=== PATIENT | male | born 1990 ===

== ENCOUNTER 2019-08-02 11:52 | Emergency (ER) | payer SELFPAY ==
[2019-08-02 12:38] LABS: BARBITURATE SCREEN,URINE NEGATIVE (NEGATIVE); BENZODIAZEPINES SCREEN,URINE NEGATIVE (NEGATIVE); EDDP,URINE SCREEN NEGATIVE (NEGATIVE); TCA SCREEN,URINE NEGATIVE (NEGATIVE); THC SCREEN,URINE 50 NG/ML NEGATIVE (NEGATIVE)
--- NOTE | 2019-08-02 12:39 | EDM.PDOC ---
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 Cousin is [employer] employee. Initially only information received was from EMS crew who had minimal info and only could relay to us that patient was combative en route and sats in lower 80s. Once patient arrived to hospital he was cooperative and had no complaints, saying to staff that he felt fine. Call placed to patient's cousin and more information obtained. She stated that patient usually drinks "a lot" and "everyday". He can drink " up to a bottle a day" of hard liquor. Per her report he apparently stopped cold turkey yesterday, with his last drink around 11am. Today just before noon she witnessed him fall to the floor and had general seizure activity for approximately 2 minutes. It is then she called 911. No seizure activity reported by EMS. Cousin says patient has no history of seizures in past that she knows of. He does spend part of his time living with others in [place]. She is not aware of any other drug use. Patient denies drug use other than ETOH. Initially he told nurse that he only drinks once a week. When confronted with what his cousin reported, he laughed and agreed that his use is much heavier/daily. When asked why he stopped using alcohol suddenly yesterday morning, he said because "he was tired" (of it). He does report feeling shaky if he is not using ETOH/has some degree of DTs. Both patient and his cousin deny that he has any other health problems that they are aware of. ROS unremarkable otherwise overall except for intermittent mild cough. Patient smokes 1ppd per self report. - Related Data Allergies Allergy/AdvReac Type Severity Reaction Status Date / Time No Known Allergies Allergy Verified 08/02/19 12:02 Home Meds: Home Meds . [No Known Home Meds] 08/02/19 [History] Past Medical History Psychiatric History: Reports: Addiction (ETOH abuse/dependency) Social & Family History - Tobacco Use Smoking Status *Q: Current Every Day Smoker Years of Tobacco use: 2 Packs/Tins Daily: 1 - Caffeine Use Caffeine Use: Reports: Soda - Alcohol Use Days Per Week of Alcohol Use: 7 Number of Drinks Per Day: 5 Total Drinks Per Week: 35 Total Drinks Per Week Comment: Uncertain how accurate patient's self report is as to amount of use, his cousin states that patient can drink up to a bottle a day. - Recreational Drug Use Recreational Drug Use: No ED ROS GENERAL - Review of Systems Review Of Systems: See Below Constitutional: Reports: No Symptoms HEENT: Reports: No Symptoms. Denies: Vertigo, Vision Change Respiratory: Reports: Cough (mild/intermittent/long standing. Denies acute changes) Cardiovascular: Reports: No Symptoms GI/Abdominal: Reports: No Symptoms : Reports: No Symptoms Musculoskeletal: Reports: No Symptoms Skin: Reports: No Symptoms Neurological: Reports: Seizure, Other (post-ictal confusion reported by EMS). Denies: Dizziness, Headache, Numbness, Trouble Speaking, Difficulty Walking, Change in Speech, Gait Disturbance Psychiatric: Reports: No Symptoms Hematologic/Lymphatic: Reports: No Symptoms ED EXAM, GENERAL - Physical Exam Exam: See Below Exam Limited By: No Limitations General Appearance: Alert, WD/WN, No Apparent Distress Eye Exam: Bilateral Eye: EOMI, PERRL Ears: Hearing Grossly Normal Nose: No: Nasal Deformity, Nasal Swelling, Nasal Drainage Throat/Mouth: Normal Lips, Normal Voice, No Airway Compromise Head: Atraumatic, Normocephalic Neck: Supple, Full Range of Motion Respiratory/Chest: No Respiratory Distress, Lungs Clear, Normal Breath Sounds, No Accessory Muscle Use Cardiovascular: Normal Peripheral Pulses, Regular Rate, Rhythm, No Edema, No Murmur Peripheral Pulses: 2+: Radial (L), Radial (R) GI/Abdominal: Normal Bowel Sounds, Soft, Non-Tender, No Distention (Male) Exam: Deferred Rectal (Males) Exam: Deferred Back Exam: Normal Inspection Extremities: Normal Range of Motion, Normal Capillary Refill Neurological: Alert, Oriented, CN II-XII Intact, Normal Cognition, Normal Gait, No Motor/Sensory Deficits Psychiatric: Normal Affect, Normal Mood Skin Exam: Warm, Dry, Intact, Other (very dry skin noted on feet/toes) Course - Vital Signs Last Recorded V/S: Last Vital Signs Temp 35.7 C L 08/02/19 11:53 Pulse 75 08/02/19 13:06 Resp 16 08/02/19 13:06 BP 153/99 H 08/02/19 13:06 Pulse Ox 99 08/02/19 13:06 - Orders/Labs/Meds Orders: Active Orders 24 hr Category Date Time Status Chest 1V Frontal [CR] Stat Exams 08/02/19 12:03 Ordered Head wo Cont [CT] Stat Exams 08/02/19 13:20 Ordered Sodium Chloride 0.9% [Normal Saline] 1,000 ml Med 08/02/19 13:56 Ordered IV .BOLUS Sodium Chloride 0.9% [Saline Flush] Med 08/02/19 13:55 Ordered 10 ml FLUSH ASDIRECTED PRN Saline Lock Insert [OM.PC] Routine Oth 08/02/19 13:55 Ordered Medication Orders Sodium Chloride (Normal Saline) 1,000 mls @ 500 mls/hr IV .BOLUS ONE Stop: 08/02/19 15:55 Last Admin: 08/02/19 14:31 Dose: 500 mls/hr Sodium Chloride (Saline Flush) 10 ml FLUSH ASDIRECTED PRN PRN Reason: Keep Vein Open Labs: Laboratory Tests 08/02/19 08/02/19 08/02/19 Range/Units 12:02 12:20 12:20 WBC 5.8 (4.0-10.2) K/uL RBC 4.83 (4.33-5.41) M/uL Hgb 13.7 (13.1-16.8) g/dL Hct 41.6 (39.0-49.0) % MCV 86.1 (84.0-98.0) fL MCH 28.4 (28.2-33.3) pg MCHC 32.9 (31.7-36.0) g/dL RDW 13.7 (11.2-14.1) % Plt Count 96 L (150-350) K/uL Neut % (Auto) 75.7 (45.0-80.0) % Lymph % (Auto) 17.5 (10.0-50.0) % [place] % (Auto) 5.8 (2.0-14.0) % Eos % (Auto) 0.7 (0.0-5.0) % Baso % (Auto) 0.3 (0.0-2.0) % Neut # (Auto) 4.41 (1.40-7.00) K/uL Lymph # (Auto) 1.02 (0.50-3.50) K/uL [place] # (Auto) 0.34 (0.00-1.00) K/uL Eos # (Auto) 0.04 (0.00-0.50) K/uL Baso # (Auto) 0.02 (0.00-0.20) K/uL Sodium 141 (136-145) mmol/L Potassium 3.8 (3.5-5.1) mmol/L Chloride 100 (98-107) mmol/L Carbon Dioxide 17.8 L (21.0-32.0) mmol/L BUN 7 (7-18) mg/dL Creatinine 0.72 (0.51-1.17) mg/dL Est Cr Clr Drug Dosing 193.94 mL/min Estimated GFR (MDRD) > 60 mL/min Glucose 131 H (74-106) mg/dL Lactic Acid (0.4-2.0) mmol/L Calcium 9.2 (8.5-10.1) mg/dL Magnesium 1.3 L (1.8-2.4) mg/dL Total Bilirubin 0.8 (0.2-1.0) mg/dL AST 352 H (15-37) U/L ALT 201 H (12-78) U/L Alkaline Phosphatase 109 (46-116) IU/L Total Protein 7.9 (6.4-8.2) g/dL Albumin 3.6 (3.4-5.0) g/dL Specimen Type Urinblad Urine Color Yellow Urine Appearance Clear Urine pH 6.0 (5.0-9.0) Ur Specific [place] >= 1.030 (1.005-1.030) Urine Protein >=300 H (NEGATIVE) mg/dL Urine Glucose (UA) Negative (NEGATIVE) mg/dL Urine Ketones 40 H (NEGATIVE) mg/dL Urine Occult Blood Large H (NEGATIVE) Urine Nitrite Negative (NEGATIVE) Urine Bilirubin Negative (NEGATIVE) Urine Urobilinogen 0.2 (0.2-1.0) E.U./dL Ur Leukocyte Esterase Negative (NEGATIVE) Urine RBC 5-10 H /HPF Urine WBC 0-5 /HPF Ur Epithelial Cells Rare /LPF Urine Bacteria Few (NONE TO FEW) /HPF Urine Opiates Screen (NEGATIVE) Ur Buprenorphine Scrn (NEGATIVE) Ur Oxycodone Screen (NEGATIVE) Ur EDDP (Meth Metab) (NEGATIVE) Ur Barbiturates Screen (NEGATIVE) Ur Tricyclics Screen (NEGATIVE) Ur Amphetamine Screen (NEGATIVE) U Methamphetamines Scrn (NEGATIVE) Urine MDMA Screen (NEGATIVE) U Benzodiazepines Scrn (NEGATIVE) U Cocaine Metab Screen (NEGATIVE) U Marijuana (THC) Screen (NEGATIVE) Ethyl Alcohol 0.002 (0.000-0.080) g/dL 08/02/19 08/02/19 Range/Units 12:20 12:20 WBC (4.0-10.2) K/uL RBC (4.33-5.41) M/uL Hgb (13.1-16.8) g/dL Hct (39.0-49.0) % MCV (84.0-98.0) fL MCH (28.2-33.3) pg MCHC (31.7-36.0) g/dL RDW (11.2-14.1) % Plt Count (150-350) K/uL Neut % (Auto) (45.0-80.0) % Lymph % (Auto) (10.0-50.0) % [place] % (Auto) (2.0-14.0) % Eos % (Auto) (0.0-5.0) % Baso % (Auto) (0.0-2.0) % Neut # (Auto) (1.40-7.00) K/uL Lymph # (Auto) (0.50-3.50) K/uL [place] # (Auto) (0.00-1.00) K/uL Eos # (Auto) (0.00-0.50) K/uL Baso # (Auto) (0.00-0.20) K/uL Sodium (136-145) mmol/L Potassium (3.5-5.1) mmol/L Chloride (98-107) mmol/L Carbon Dioxide (21.0-32.0) mmol/L BUN (7-18) mg/dL Creatinine (0.51-1.17) mg/dL Est Cr Clr Drug Dosing mL/min Estimated GFR (MDRD) mL/min Glucose (74-106) mg/dL Lactic Acid 11.1 H (0.4-2.0) mmol/L Calcium (8.5-10.1) mg/dL Magnesium (1.8-2.4) mg/dL Total Bilirubin (0.2-1.0) mg/dL AST (15-37) U/L ALT (12-78) U/L Alkaline Phosphatase (46-116) IU/L Total Protein (6.4-8.2) g/dL Albumin (3.4-5.0) g/dL Specimen Type Urine Color Urine Appearance Urine pH (5.0-9.0) Ur Specific [place] (1.005-1.030) Urine Protein (NEGATIVE) mg/dL Urine Glucose (UA) (NEGATIVE) mg/dL Urine Ketones (NEGATIVE) mg/dL Urine Occult Blood (NEGATIVE) Urine Nitrite (NEGATIVE) Urine Bilirubin (NEGATIVE) Urine Urobilinogen (0.2-1.0) E.U./dL Ur Leukocyte Esterase (NEGATIVE) Urine RBC /HPF Urine WBC /HPF Ur Epithelial Cells /LPF Urine Bacteria (NONE TO FEW) /HPF Urine Opiates Screen Negative (NEGATIVE) Ur Buprenorphine Scrn Negative (NEGATIVE) Ur Oxycodone Screen Negative (NEGATIVE) Ur EDDP (Meth Metab) Negative (NEGATIVE) Ur Barbiturates Screen Negative (NEGATIVE) Ur Tricyclics Screen Negative (NEGATIVE) Ur Amphetamine Screen Negative (NEGATIVE) U Methamphetamines Scrn Negative (NEGATIVE) Urine MDMA Screen Negative (NEGATIVE) U Benzodiazepines Scrn Negative (NEGATIVE) U Cocaine Metab Screen Negative (NEGATIVE) U Marijuana (THC) Screen Negative (NEGATIVE) Ethyl Alcohol (0.000-0.080) g/dL Meds: Medications Generic Name Dose Route Start Last Admin Trade Name Freq PRN Reason Stop Dose Admin Sodium Chloride 1,000 mls @ 500 mls/hr 08/02/19 13:56 08/02/19 14:31 Normal Saline IV 08/02/19 15:55 500 mls/hr .BOLUS ONE Administration Sodium Chloride 10 ml 08/02/19 13:55 Saline Flush FLUSH ASDIRECTED PRN Keep Vein Open Discontinued Medications Generic Name Dose Route Start Last Admin Trade Name Freq PRN Reason Stop Dose Admin Magnesium Sulfate 4 gm/ Premix 100 mls @ 200 mls/hr 08/02/19 14:10 08/02/19 14:31 IV 08/02/19 14:39 200 mls/hr ONETIME ONE Administration Lorazepam 1 mg 08/02/19 12:41 08/02/19 13:29 Ativan PO 08/02/19 12:42 1 mg ONETIME ONE Administration Thiamine HCl 100 mg 08/02/19 12:41 08/02/19 13:30 Vitamin B-1 IM 08/02/19 12:42 100 mg ONETIME ONE Administration - Re-Assessments/Exams Free Text/Narrative Re-Assessment/Exam: Patient essentially alert and oriented appropriately by the time he arrived to the ER. Based on history obtained from his cousin who witnessed the event, patient had approximately a 2 min seizure prior to her calling EMS. EMS report of patient being combative/having initially lower O2 sats consistent with post-ictal behavior. O2 sats 98-100% upon arrival to ER. Vital signs stable. CT of head initially refused by patient. Labs/chest xray ordered. He later changed his mind and was agreeable with CT. Given patient's history of ETOH he was given PO Ativan and IM Thiamine. WBC normal, however Lactic Acid noted to be 11.1 with a low Mag of 1.3. UA showed ketones and elevated concentration suggestive of dehydration. IV fluids ordered. Chest xray did not show acute obvious infiltrates or evidence of aspiration. Call placed to [facility] to transfer patient for further evaluation and care given the history of DTs with recent discontinuation of ETOH/new seizure/ significantly elevated lactic and low Mg. Accepted for transfer by . IV Mag added to fluids. CT reviewed by Radiology who noted "funny" area of low attenuation near posterior left frontal/parietal area and recommended MRI for further evaluation as it could be a mass. MRI will be able to be performed at [facility]. Departure - Departure Time of Disposition: 15:08 Disposition: DC/Tfer to Acute Hospital 02 Condition: Good Clinical Impression: New onset seizure, Hypomagnesemia, Elevated lactic acid level, Dehydration EtOH dependence Qualifiers: Substance use status: in withdrawal Complication of substance-induced condition : with unspecified complication Qualified Code(s): F10.239 - Alcohol dependence with withdrawal, unspecified - Discharge Information *PRESCRIPTION DRUG MONITORING PROGRAM REVIEWED*: Not Applicable *COPY OF PRESCRIPTION DRUG MONITORING REPORT IN PATIENT MARCIAL: Not Applicable Forms: ED Department Discharge Sepsis Event Note - Evaluation Sepsis Screening Result: Possible Severe Sepsis Risk - Focused Exam Vital Signs: Vital Signs Temp Pulse Resp BP Pulse Ox 08/02/19 13:06 75 16 153/99 H 99 08/02/19 12:37 94 20 145/108 H 94 L 08/02/19 12:23 94 18 122/75 100 08/02/19 12:12 79 20 146/88 H 100 08/02/19 11:53 35.7 C L 96 20 140/86 99 Date Exam was Performed: 08/02/19 Time Exam was Performed: 14:48 - My Orders Last 24 Hours: My Active Orders 08/02/19 12:03 Chest 1V Frontal [CR] Stat 08/02/19 13:20 Head wo Cont [CT] Stat 08/02/19 13:55 Sodium Chloride 0.9% [Saline Flush] 10 ml FLUSH ASDIRECTED PRN Saline Lock Insert [OM.PC] Routine 08/02/19 13:56 Sodium Chloride 0.9% [Normal Saline] 1,000 ml IV .BOLUS - Assessment/Plan Last 24 Hours: My Active Orders 08/02/19 12:03 Chest 1V Frontal [CR] Stat 08/02/19 13:20 Head wo Cont [CT] Stat 08/02/19 13:55 Sodium Chloride 0.9% [Saline Flush] 10 ml FLUSH ASDIRECTED PRN Saline Lock Insert [OM.PC] Routine 08/02/19 13:56 Sodium Chloride 0.9% [Normal Saline] 1,000 ml IV .BOLUS
[2019-08-02] MEDS ORDERED: LORazepam 1 MG Tab PO ONE (12:41)
[2019-08-02] MEDS ORDERED: Thiamine 200 MG/2 ML MDV IM ONE (12:41)
[2019-08-02 12:44] LABS: CHLORIDE,CL 100 mmol/L (98-107); SODIUM,NA 141 mmol/L (136-145)
[2019-08-02] MEDS ORDERED: Sodium Chloride 0.9% 10 ML Syringe FLUSH PRN (13:55)
[2019-08-02] MEDS ORDERED: Sodium Chloride 0.9% 1,000 ML IV ONE (13:56)
[2019-08-02] MEDS ORDERED: Magnesium Sulfate/Water 4 GM in Premix Bag 1 BAG IV ONE (14:10)
[2019-08-02] MEDS ORDERED: LORazepam 2 MG/ML SDV IVPUSH ONE (16:30)
[2019-08-02] MEDS ORDERED: Sodium Chloride 0.9% 1,000 ML IV SCH (17:30)
[2019-08-02 18:36] VITALS: BP 134/89; PULSE 87
== END 2019-08-02 18:20 ==
LOC: LL.ED 11:52
DX: E86.0 Dehydration (principal); R56.9 Unspecified convulsions; E83.42 Hypomagnesemia; R74.0 Nonspecific elevation of levels of transaminase and lactic acid dehydrogenase [LDH]; F10.239 Alcohol dependence with withdrawal, unspecified; Y90.1 Blood alcohol level of 20-39 mg/100 ml; F17.210 Nicotine dependence, cigarettes, uncomplicated
CPT/HCPCS: 36415; 70450; 71045; 80053; 80305-QW; 80307; 81001; 83605; 83735; 85025; 96361; 96365; 96372; 96375; 99284; 99285-25; A9270-GY; J2060; J3411; J3475; J7030

== ENCOUNTER 2019-10-31 11:40 | Emergency (ER) | payer SELFPAY ==
[2019-10-31] MEDS: Sodium Chloride 0.9% 1,000 ML IV ONE (12:15)
[2019-10-31] MEDS: LORazepam 2 MG/ML SDV IVPUSH ONE ×2 (12:21→15:20)
[2019-10-31] MEDS: Sodium Chloride 0.9% 10 ML Syringe FLUSH PRN (12:21)
--- NOTE | 2019-10-31 12:26 | EDM.PDOC ---
ED HPI GENERAL MEDICAL PROBLEM - General Chief Complaint: Neurological Problem Stated Complaint: Altered LOC Time Seen by Provider: 10/31/19 11:55 Source of Information: Reports: EMS, Police History Limitations: Reports: Intoxication, Uncooperative - History of Present Illness INITIAL COMMENTS - FREE TEXT/NARRATIVE: Patient brought via EMS after he was found unresponsive in a vehicle here in town. Two other individuals reportedly were outside the car, had bottle of alcohol that they were consuming. Patient did come around when EMS arrived/appeared intoxicated. Did not require Narcan. Individual is known to the ER and has previous diagnosis of ETOH dependence/abuse. Patient denies having any problems upon arrival to ER and says he wants to go home. - Related Data Allergies Allergy/AdvReac Type Severity Reaction Status Date / Time No Known Allergies Allergy Verified 08/02/19 12:02 Home Meds: Home Meds . [No Known Home Meds] 08/02/19 [History] Past Medical History Neurological History: Reports: Seizure Psychiatric History: Reports: Addiction Hematologic History: Reports: Other (See Below) (Low Magnesium) Social & Family History - Caffeine Use Caffeine Use: Reports: Soda - Alcohol Use Alcohol Use History: Yes Alcohol Use Frequency: Daily - Recreational Drug Use Recreational Drug Type: Reports: Marijuana/Hashish ED ROS GENERAL - Review of Systems Review Of Systems: Unable To Obtain Reason Not Obtained: Patient intoxicated/uncooperative ED EXAM, GENERAL - Physical Exam Exam: See Below Exam Limited By: Intoxication General Appearance: Alert, Other (Intoxicated. Knows he is in [place]) Eye Exam: Bilateral Eye: EOMI, Other (Pupils 3mm/minimally reactive) Ears: Hearing Grossly Normal Nose: No: Nasal Deformity, Nasal Swelling, Nasal Drainage Throat/Mouth: Normal Lips, Normal Voice, No Airway Compromise Head: Atraumatic, Normocephalic Neck: Supple Respiratory/Chest: No Respiratory Distress, Lungs Clear, Normal Breath Sounds Cardiovascular: Regular Rate, Rhythm, No Edema, No Murmur GI/Abdominal: Normal Bowel Sounds, Soft, Non-Tender, No Distention. No: Hepatomegaly (Male) Exam: Deferred Rectal (Males) Exam: Deferred Back Exam: Normal Inspection Extremities: Normal Inspection, Normal Range of Motion, Non-Tender, No Pedal Edema, Normal Capillary Refill Neurological: Alert, Other (Intoxicated) Psychiatric: Other (intoxicated) Skin Exam: Warm, Dry, Intact Course - Vital Signs Last Recorded V/S: Last Vital Signs Temp 36.3 C 10/31/19 12:31 Pulse 79 10/31/19 12:31 Resp 15 10/31/19 12:31 BP 125/81 10/31/19 12:31 Pulse Ox 96 10/31/19 12:31 - Orders/Labs/Meds Orders: Active Orders 24 hr Category Date Time Status UA W/MICROSCOPIC [URIN] Stat Lab 10/31/19 12:03 Ordered Sodium Chloride 0.45% 1,000 ml Med 10/31/19 13:15 Active IV ASDIRECTED Sodium Chloride 0.45% @ 125 MLS/HR(1,000ml) Med 10/31/19 15:15 Ordered Sodium Chloride 0.45% 1,000 ml IV ASDIRECTED Sodium Chloride 0.9% [Saline Flush] Med 10/31/19 12:04 Active 10 ml FLUSH ASDIRECTED PRN Saline Lock Insert [OM.PC] Routine Oth 10/31/19 12:03 Ordered Medication Orders Sodium Chloride (Sodium Chloride 0.45%) 1,000 mls @ 500 mls/hr IV ASDIRECTED JORGE Last Admin: 10/31/19 13:15 Dose: 500 mls/hr Documented by: ABE Sodium Chloride (Sodium Chloride 0.45%) 1,000 mls @ 125 mls/hr IV ASDIRECTED JORGE Last Admin: 10/31/19 15:20 Dose: 125 mls/hr Documented by: ABE Sodium Chloride (Saline Flush) 10 ml FLUSH ASDIRECTED PRN PRN Reason: Keep Vein Open Last Admin: 10/31/19 12:21 Dose: 10 ml Documented by: ABE Labs: Laboratory Tests 10/31/19 10/31/19 10/31/19 Range/Units 12:06 12:06 12:06 WBC 5.6 (4.0-10.2) K/uL RBC 4.89 (4.33-5.41) M/uL Hgb 14.3 (13.1-16.8) g/dL Hct 42.3 (39.0-49.0) % MCV 86.5 (84.0-98.0) fL MCH 29.2 (28.2-33.3) pg MCHC 33.8 (31.7-36.0) g/dL RDW 12.7 (11.2-14.1) % Plt Count 396 H D (150-350) K/uL Neut % (Auto) 31.8 L (45.0-80.0) % Lymph % (Auto) 61.1 H (10.0-50.0) % [place] % (Auto) 4.9 (2.0-14.0) % Eos % (Auto) 1.3 (0.0-5.0) % Baso % (Auto) 0.9 (0.0-2.0) % Neut # (Auto) 1.77 (1.40-7.00) K/uL Lymph # (Auto) 3.39 (0.50-3.50) K/uL [place] # (Auto) 0.27 (0.00-1.00) K/uL Eos # (Auto) 0.07 (0.00-0.50) K/uL Baso # (Auto) 0.05 (0.00-0.20) K/uL Sodium 147 H (136-145) mmol/L Potassium 4.1 (3.5-5.1) mmol/L Chloride 108 H (98-107) mmol/L Carbon Dioxide 23.8 (21.0-32.0) mmol/L BUN 13 (7-18) mg/dL Creatinine 0.91 (0.51-1.17) mg/dL Est Cr Clr Drug Dosing TNP Estimated GFR (MDRD) > 60 mL/min Glucose 89 (74-106) mg/dL Lactic Acid 2.3 H (0.4-2.0) mmol/L Calcium 8.5 (8.5-10.1) mg/dL Magnesium 1.8 (1.8-2.4) mg/dL Total Bilirubin 0.2 (0.2-1.0) mg/dL AST 56 H (15-37) U/L ALT 63 (12-78) U/L Alkaline Phosphatase 72 (46-116) IU/L Creatine Kinase 146 (26-308) U/L Creatine Kinase Index 0.4 (0.0-2.5) % CK-MB (CK-2) 0.60 (0.00-3.60) ng/mL Total Protein 8.3 H (6.4-8.2) g/dL Albumin 4.0 (3.4-5.0) g/dL Ethyl Alcohol 0.473 H (0.000-0.080) g/dL Meds: Medications Generic Name Dose Route Start Last Admin Trade Name Freq PRN Reason Stop Dose Admin Sodium Chloride 1,000 mls @ 500 mls/hr 10/31/19 13:15 10/31/19 13:15 Sodium Chloride 0.45% IV 500 mls/hr ASDIRECTED JORGE Administration Sodium Chloride 1,000 mls @ 125 mls/hr 10/31/19 15:15 10/31/19 15:20 Sodium Chloride 0.45% IV 125 mls/hr ASDIRECTED JORGE Administration Sodium Chloride 10 ml 10/31/19 12:04 10/31/19 12:21 Saline Flush FLUSH 10 ml ASDIRECTED PRN Administration Keep Vein Open Discontinued Medications Generic Name Dose Route Start Last Admin Trade Name Freq PRN Reason Stop Dose Admin Sodium Chloride 1,000 mls @ 999 mls/hr 10/31/19 12:15 10/31/19 12:15 Normal Saline IV 10/31/19 13:15 999 mls/hr .BOLUS ONE Administration Lorazepam 1 mg 10/31/19 12:15 10/31/19 12:21 Ativan IVPUSH 10/31/19 12:16 1 mg ONETIME ONE Administration Lorazepam 0.5 mg 10/31/19 14:19 10/31/19 15:20 Ativan IVPUSH 10/31/19 14:20 0.5 mg ONETIME ONE Administration - Re-Assessments/Exams Free Text/Narrative Re-Assessment/Exam: 10/31/19 12:27 After lengthy bargaining patient let nursing staff establish an IV and draw blood. Patient appeared to get more agitated, wanting to leave, wondering where his family was. Ativan dose administered. IV fluids given while waiting for test results. 10/31/19 13:50 Lactic 2.3 Na 142 ETOH 0.473 AST 56 Given high level of ETOH on board/hypernatremia/past hx of seizure when detoxing from ETOH it was felt in best interest of patient to send to [facility] where intermediate/ICU care available as needed. Discussed patient with and she accepted him, adding that patient left AMA when he was transferred there several months ago. Patient sleeping soundly at this time after getting Ativan. Stable. IV fluids changed to 1/2NS after lab showed hypernatremia. Free Text/Narrative Re-Assessment/Exam: 10/31/19 15:46 Patient placed on 24 hour hold Departure - Departure Time of Disposition: 15:00 Disposition: DC/Tfer to Acute Hospital 02 Condition: Fair Clinical Impression: Hypernatremia EtOH dependence Qualifiers: Substance use status: with intoxication Complication of substance-induced condition: with unspecified complication Qualified Code(s): F10.229 - Alcohol d ependence with intoxication, unspecified Alcohol intoxication Qualifiers: Complication of substance-induced condition: with unspecified complication Qualified Code(s): F10.929 - Alcohol use, unspecified with intoxication, unspecified - Discharge Information Referrals: PCP,None [Primary Care Provider] - Forms: ED Department Discharge Sepsis Event Note (ED) - Focused Exam Vital Signs: Vital Signs Temp Pulse Resp BP Pulse Ox 10/31/19 12:31 36.3 C 79 15 125/81 96 - My Orders Last 24 Hours: My Active Orders 10/31/19 12:03 UA W/MICROSCOPIC [URIN] Stat Saline Lock Insert [OM.PC] Routine 10/31/19 12:04 Sodium Chloride 0.9% [Saline Flush] 10 ml FLUSH ASDIRECTED PRN 10/31/19 13:15 Sodium Chloride 0.45% 1,000 ml IV ASDIRECTED 10/31/19 15:15 Sodium Chloride 0.45% @ 125 MLS/HR(1,000ml) Sodium Chloride 0.45% 1,000 ml IV ASDIRECTED - Assessment/Plan Last 24 Hours: My Active Orders 10/31/19 12:03 UA W/MICROSCOPIC [URIN] Stat Saline Lock Insert [OM.PC] Routine 10/31/19 12:04 Sodium Chloride 0.9% [Saline Flush] 10 ml FLUSH ASDIRECTED PRN 10/31/19 13:15 Sodium Chloride 0.45% 1,000 ml IV ASDIRECTED 10/31/19 15:15 Sodium Chloride 0.45% @ 125 MLS/HR(1,000ml) Sodium Chloride 0.45% 1,000 ml IV ASDIRECTED
[2019-10-31 12:50] LABS: CHLORIDE,CL 108 mmol/L (98-107); SODIUM,NA 147 mmol/L (136-145)
[2019-10-31] MEDS: Sodium Chloride 0.45% 1,000 ML IV SCH ×2 (13:15→15:20)
[2019-10-31 18:00] VITALS: PULSE 80
[2019-10-31 18:01] VITALS: BP 102/59
== END 2019-10-31 15:30 ==
LOC: LL.ED 11:40
DX: E87.0 Hyperosmolality and hypernatremia (principal); F10.229 Alcohol dependence with intoxication, unspecified
CPT/HCPCS: 36415; 80053; 80307; 82550; 82553; 83605; 83735; 85025; 96361; 96374; 96376; 99284; 99285-25; J2060; J7030

== ENCOUNTER 2023-04-11 13:11 | Emergency (ER) | payer SELFPAY ==
[2023-04-11] MEDS ORDERED: Sodium Chloride 0.9% 10 ML Syringe FLUSH PRN (13:13)
[2023-04-11 13:35] LABS: BASOPHILS ABSOLUTE AUTO 0.01 K/uL (0.00-0.20); BASOPHILS PERCENT AUTO 0.2 % (0.0-2.0); EOSINOPHILS PERCENT AUTO 2.4 % (0.0-5.0); HEMATOCRIT 41.4 % (39.0-49.0); HEMOGLOBIN 14.4 g/dL (13.1-16.8); LYMPHOCYTES ABSOLUTE AUTO 1.84 K/uL (0.50-3.50); LYMPHOCYTES PERCENT AUTO 44.2 % (10.0-50.0); MEAN CORPUSCULAR HGB CONC 34.8 g/dL (31.7-36.0); MEAN CORPUSCULAR VOLUME 83.3 fL (84.0-98.0); MONOCYTES ABSOLUTE AUTO 0.38 K/uL (0.00-1.00); MONOCYTES PERCENT AUTO 9.1 % (2.0-14.0); NEUTROPHILS ABSOLUTE AUTO 1.83 K/uL (1.40-7.00); NEUTROPHILS PERCENT AUTO 44.1 % (45.0-80.0); PLATELET COUNT,PLT 212 K/uL (150-350); RED BLOOD CELL COUNT 4.97 M/uL (4.33-5.41); RED CELL DISTRIBUTION WIDTH 13.4 % (11.2-14.1); WHITE BLOOD CELL COUNT,WBC 4.2 K/uL (4.0-10.2)
[2023-04-11 13:40] LABS: APPEARANCE,URINE CLEAR; BILIRUBIN,URINE NEGATIVE (NEGATIVE); COLOR,URINE YELLOW; GLUCOSE,URINE NEGATIVE (NEGATIVE); KETONES,URINE NEGATIVE (NEGATIVE); LEUKOCYTE ESTERASE,URINE NEGATIVE (NEGATIVE); NITRITE,URINE NEGATIVE (NEGATIVE); OCCULT BLOOD,URINE TRACE-INTACT (NEGATIVE); PROTEIN,URINE 30 mg/dL (NEGATIVE); UROBILINOGEN,URINE 0.2 E.U./dL (0.2-1.0)
[2023-04-11 13:48] LABS: RBC,URINE 0-5 /HPF; WBC,URINE 0-5 /HPF
[2023-04-11 13:49] LABS: AMPHETAMINES SCREEN, URINE NEGATIVE (NEGATIVE); BARBITURATE SCREEN,URINE NEGATIVE (NEGATIVE); BENZODIAZEPINES SCREEN,URINE NEGATIVE (NEGATIVE); COCAINE METABOLITES,URINE NEGATIVE (NEGATIVE); EDDP,URINE SCREEN NEGATIVE (NEGATIVE); METHAMPHETAMINES SCREEN, URINE NEGATIVE (NEGATIVE); TCA SCREEN,URINE NEGATIVE (NEGATIVE); THC SCREEN,URINE 50 NG/ML NEGATIVE (NEGATIVE)
[2023-04-11 14:00] LABS: BUPRENORPHINE SCREEN,URINE NEGATIVE (NEGATIVE); OXYCODONE SCREEN,URINE NEGATIVE (NEGATIVE)
[2023-04-11] MEDS: Sodium Chloride 0.9% 1,000 ML IV ONE ×2 (14:00→15:14)
[2023-04-11 14:06] LABS: ALANINE AMINOTRANSFERASE,ALT 231 U/L (12-78); ALBUMIN 3.8 g/dL (3.4-5.0); ALKALINE PHOSPHATASE 100 IU/L (46-116); ANION GAP 12.1 meq/L (7-15); ASPARTATE AMNIOTRANSFERASE,AST 269 U/L (15-37); BILIRUBIN TOTAL 0.4 mg/dL (0.2-1.0); BLOOD UREA NITROGEN,BUN 7 mg/dL (7-18); CALCIUM 8.9 mg/dL (8.5-10.1); CARBON DIOXIDE,CO2 25.9 mmol/L (21.0-32.0); CHLORIDE,CL 105 mmol/L (98-107); CREATININE 0.82 mg/dL (0.51-1.17); ETHANOL BLOOD MEDICAL 0.463 g/dL (0.000-0.080); GLUCOSE RANDOM 100 mg/dL (70-99); MAGNESIUM 1.6 mg/dL (1.8-2.4); POTASSIUM,K 3.9 mmol/L (3.5-5.1); PROTEIN TOTAL,TP 8.3 g/dL (6.4-8.2); SODIUM,NA 143 mmol/L (136-145)
[2023-04-11 14:07] LABS: ESTIMATED GFR 118 mL/min (>=60)
[2023-04-11] MEDS: LORazepam 2 MG/ML SDV IVPUSH ONE (14:15)
[2023-04-11] MEDS: Haloperidol Lactate 5 MG/ML SDV IVPUSH ONE (14:20)
[2023-04-11] MEDS: diphenhydrAMINE 50 MG/ML SDV IVPUSH ONE (14:20)
[2023-04-11] MEDS: Thiamine 200 MG/2 ML MDV IVPUSH ONE (15:31)
[2023-04-11] MEDS: Magnesium Sulfate/Water 2 GM in Premix Bag 1 BAG IV ONE (15:36)
[2023-04-11] MEDS: LORazepam 2 MG/ML SDV IM ONE (15:39)
[2023-04-11] MEDS: diphenhydrAMINE 50 MG/ML SDV IM ONE (17:31)
[2023-04-11] MEDS: Haloperidol Lactate 5 MG/ML SDV IM ONE (17:33)
[2023-04-12] MEDS: LORazepam 1 MG Tab PO ONE (09:40)
== END 2023-04-12 10:00 | disposition home or self-care (01) ==
LOC: LL.ED 13:11
DX: F10.229 Alcohol dependence with intoxication, unspecified (principal); E83.42 Hypomagnesemia; Y90.8 Blood alcohol level of 240 mg/100 ml or more
CPT/HCPCS: 36415; 80053; 80305-QW; 80307; 81001; 83605; 83735; 85025; 96361; 96365; 96366; 96375; 99284; 99285-25; A9270-GY; J1200; J1630; J2060; J3411; J3475; J7030